=== PATIENT | female | born 1970 | race Caucasian/White ===

== ENCOUNTER 2024-09-21 12:48 | Emergency (ER) | payer OTHER ==
[~2024-09-21] VITALS: Ht 165.1 cm; Wt 63.6 kg
[~2024-09-21 12:48] MED LIST: ALBUTEROL SULF8.5 GM INH; CLINDAMYCIN HC150 MG PO; CYCLOBENZAPRINE10 MG PO; GABAPENTIN300 MG PO; NORCO 5-325 TA1 EACH PO; PERCOCET 5-3251 EACH PO
[2024-09-21] MEDS ORDERED: HYDROmorphone HCL 1 MG/ML SYR IV PRN (13:15)
[2024-09-21] MEDS ORDERED: ondansetron HCL 4 MG/2 ML VIAL IV ONE (13:15)
[2024-09-21] MEDS ORDERED: COLACE100 MG PO (16:02)
[2024-09-21] MEDS ORDERED: HYDROCODON-ACE1 EA10 PO (16:02)
[2024-09-21] MEDS ORDERED: ONDANSETRON ODT4 MG PO (16:02)
[2024-09-21 16:10] VITALS: BP 115/72
== END 2024-09-21 16:17 | disposition home or self-care (01) ==
LOC: ED 12:48
DX: S52.571A Other intraarticular fracture of lower end of right radius, initial encounter for closed fracture (principal); S52.611A Displaced fracture of right ulna styloid process, initial encounter for closed fracture; J45.909 Unspecified asthma, uncomplicated; W19.XXXA Unspecified fall, initial encounter
CPT/HCPCS: 25605; 73110; 99283-25; J1171; J2405